=== PATIENT | female | born 2005 | race Caucasian/White ===

== ENCOUNTER 2024-06-13 17:20 | Inpatient (IN) | payer OTHER ==
[~2024-06-13] VITALS: Ht 162.6 cm; Wt 74.3 kg
[~2024-06-13 17:20] MED LIST: TRAMADOL HCL50 MG PO
--- OUTSIDE RECORDS SUMMARY | 2024-06-13 17:27 | XMS ---
PreManage Notification: MARCIA CARBALLO Security Physiatrist Events No recent Security Events currently on file CRITERIA MET - [facility] - 2 Visits in 30 Days CARE PROVIDERS -, [facility] Dentist: Naval Gunfire Spotter [facility] PHONE: [phone] - [place]- Dentist: Naval Gunfire Spotter [facility] PHONE: [phone] [facility]: [facility] PHONE: [phone] Ousmane has no Care Guidelines for this patient. E.D. VISIT COUNT (12 MO.) 2 SAIRA Evans [facility] Radha ([place]) TOTAL 3 NOTE: Visits indicate total known visits. ED/UCC VISIT TRACKING (12 MO.) 06/13/2024 17:21 SAIRA You [place] TYPE: Emergency COMPLAINT: - ABDOMINAL PAIN 05/28/2024 16:04 [facility] TYPE: Emergency DIAGNOSES: - Abrasion of unspecified external genital organs, female, initial encounter - Abrasion, left thigh, initial encounter - Bitten by dog, initial encounter - Bitten by dog, initial encounter - Animal Bite - dog bites 09/01/2023 14:14 SAIRA You [place] TYPE: Emergency COMPLAINT: - R FLANK/ABD PAIN, NAUSEA DIAGNOSES: - Personal history of other diseases of the digestive system - Right upper quadrant pain - Unspecified abdominal pain INPATIENT VISIT TRACKING (12 MO.) No inpatient visits to display in this time frame [email or web address]
[2024-06-13 18:06] LABS: BASOPHILS 0.4 % (0-2); EOSINOPHILS 0.8 % (0-6); HEMATOCRIT 40.9 % (35.0-50.0); HEMOGLOBIN 14.1 g/dL (12.0-18.0); LYMPHOCYTES 23.2 % (24-44); MCH 30.3 (27-36); MCHC 34.5 g/dl (30-36); MCV 87.8 fl (81-99); MONOCYTES 7.6 % (0-12); PLATELET COUNT 277 K/uL (140-440); RBC 4.66 M/ul (4.3-5.7); RDW 12.8 (10.5-15.0)
[2024-06-13 18:12] LABS: BILIRUBIN, URINE NEGATIVE (negative); BLOOD/HGB, URINE NEGATIVE (Negative); KETONE, URINE SMALL (Negative); LEUK ESTERASE, URINE NEGATIVE (negative); NITRITE, URINE NEGATIVE (negative); PH, URINE 5.5 (5-7)
[2024-06-13] MEDS ORDERED: ondansetron HCL 4 MG/2 ML VIAL IV ONE ×2 (18:15→18:45)
[2024-06-13 18:16] LABS: ALBUMIN 4.2 g/dL (3.4-5.0); ALBUMIN/GLOBULIN RATIO 1.02 (1.1-2.4); ALKALINE PHOSPHATASE 96 U/L (46-116); ALT (SGPT) 24 U/L (14-59); ANION GAP 15.4 (7-21); AST (SGOT) 10 U/L (15-37); BILIRUBIN, TOTAL 0.4 ng/dL (0.2-1.0); BUN/CREATININE RATIO 14.47 (6.0-28.6); CALCIUM 9.1 mg/dL (8.5-10.1); CARBON DIOXIDE 25 mmol/L (21-32); CHLORIDE 101 mmol/L (98-107); CREATININE, SERUM 0.76 mg/dL (0.55-1.02); GLOMERULAR FILTRATION RATE,EST 116 mL/min (>60); MAGNESIUM 1.8 mg/dL (1.8-2.4); POTASSIUM 3.4 mmol/L (3.5-5.1); PROTEIN, TOTAL 8.3 g/dL (6.4-8.2); UREA NITROGEN 11 mg/dL (7-18)
[2024-06-13] MEDS ORDERED: HYDROmorphone HCL 1 MG/ML SYR IV PRN ×2 (18:30→21:45)
[2024-06-13] MEDS ORDERED: LACTATED RINGER'S 1,000 ML IV ONE (20:00)
[2024-06-13] MEDS ORDERED: FAMOTIDINE 20 MG/ 2 ML VIAL IV ONE (20:00)
[2024-06-13] MEDS ORDERED: MELATONIN 3 MG TAB PO PRN (21:00)
[2024-06-13 21:37] LABS: AMYLASE 125 U/L (25-115); TRIGLYCERIDES 89 ng/dL (<150)
[2024-06-13] MEDS ORDERED: LACTATED RINGER'S 1,000 ML IV SCH (21:45)
[2024-06-13] MEDS ORDERED: ACETAMINOPHEN 325 MG TAB PO PRN (21:45)
[2024-06-13] MEDS ORDERED: ondansetron HCL 4 MG/2 ML VIAL IV PRN (21:45)
[2024-06-13] MEDS ORDERED: PROCHLORPERAZINE EDISYLATE 10 MG/2 ML VIAL IV PRN (21:45)
[2024-06-13 22:26] VITALS: BP 133/76
[2024-06-14] VITALS (11 sets, daily range): BP systolic 104–115; BP diastolic 55–69
[2024-06-14 05:56] LABS: ALBUMIN 3.7 g/dL (3.4-5.0); ALBUMIN/GLOBULIN RATIO 0.95 (1.1-2.4); ANION GAP 16.7 (7-21); BILIRUBIN, TOTAL 0.5 ng/dL (0.2-1.0); BUN/CREATININE RATIO 8.57 (6.0-28.6); CALCIUM 8.9 mg/dL (8.5-10.1); CREATININE, SERUM 0.7 mg/dL (0.55-1.02); MAGNESIUM 1.8 mg/dL (1.8-2.4); POTASSIUM 3.7 mmol/L (3.5-5.1); PROTEIN, TOTAL 7.6 g/dL (6.4-8.2)
[2024-06-14] MEDS ORDERED: PANTOPRAZOLE SODIUM 40 MG/10 ML VIAL IV SCH (09:00)
[2024-06-14] MEDS ORDERED: PHARMACY RENAL DOSE ADJUSTMENT 1 DOSE MISC PO SCH (12:00)
[2024-06-14] MEDS ORDERED: SUCRALFATE 1 GM TAB PO SCH (12:00)
[2024-06-14] MEDS ORDERED: DEXTROSE 5% - LACTATED RINGERS 1,000 ML IV SCH (17:00)
[2024-06-14] MEDS ORDERED: IBLOOD GLUCOSE TEST STRIP 1 EA TEST VI SCH (20:00)
[2024-06-15 04:38] VITALS: BP 122/65
[2024-06-15 05:47] LABS: ALBUMIN 3.5 g/dL (3.4-5.0); ALBUMIN/GLOBULIN RATIO 1.09 (1.1-2.4); ANION GAP 12.4 (7-21); BILIRUBIN, TOTAL 0.4 ng/dL (0.2-1.0); BUN/CREATININE RATIO 5.97 (6.0-28.6); CALCIUM 8.8 mg/dL (8.5-10.1); CREATININE, SERUM 0.67 mg/dL (0.55-1.02); MAGNESIUM 1.6 mg/dL (1.8-2.4); POTASSIUM 3.4 mmol/L (3.5-5.1); PROTEIN, TOTAL 6.7 g/dL (6.4-8.2)
[2024-06-15] MEDS ORDERED: POTASSIUM CHLORIDE 20 MEQ in DEXTROSE 5% 250 ML IV ONE (08:00)
[2024-06-15] MEDS ORDERED: HYDROCODONE/ACETA 5/325 TAB PO PRN (08:00)
[2024-06-15] MEDS ORDERED: MAGNESIUM SULFATE 2 GM/50 ML BAG IV ONE (08:00)
[2024-06-15 09:19] VITALS: BP 113/63
[2024-06-15] MEDS ORDERED: CAPSAICIN 0.025% CREAM TOP PRN (11:45)
[2024-06-15 13:51] VITALS: BP 121/93
[2024-06-15] MEDS ORDERED: IBLOOD GLUCOSE TEST STRIP 1 EA TEST VI SCH (17:00)
[2024-06-15 18:14] VITALS: BP 105/60; BP 96/80
[2024-06-15 21:15] VITALS: BP 111/77
[2024-06-15 21:16] VITALS: BP 111/77
[2024-06-16 06:20] VITALS: BP 110/62
[2024-06-16] MEDS ORDERED: PANTOPRAZOLE SODIUM 40 MG/10 ML VIAL IV SCH (09:00)
[2024-06-16 09:15] VITALS: BP 120/79
[2024-06-16] MEDS ORDERED: HYDROCODON-ACE1 EA10 PO (09:30)
[2024-06-16] MEDS ORDERED: OMEPRAZOLE20 MG PO (09:31)
[2024-06-16] MEDS ORDERED: ONDANSETRON ODT4 MG PO (09:31)
[2024-06-16 10:16] VITALS: BP 120/79
[2024-06-16 11:00] VITALS: BP 130/68
== END 2024-06-16 10:59 | disposition home or self-care (01) | DRG 440 ==
LOC: ED 17:20 → MS 21:43
PROVIDERS: Emergency Medicine; ADMIT Student in an Organized Health Care Education/Training Program; ATTEND Student in an Organized Health Care Education/Training Program
DX: K85.30 Drug induced acute pancreatitis without necrosis or infection (principal); T50.905A Adverse effect of unspecified drugs, medicaments and biological substances, initial encounter; G43.909 Migraine, unspecified, not intractable, without status migrainosus
CPT/HCPCS: 36415; 74177; 76705; 80053; 81003; 82150; 83690; 83735; 84478; 84703; 85025; 96375; 96376; 99285-25; A9270; J0780; J1171; J2405; J2470; J3475; J3480; J7060; J7121; Q9967

== ENCOUNTER 2024-09-05 08:13 | Emergency (ER) | payer OTHER ==
[~2024-09-05] VITALS: Ht 162.6 cm; Wt 74.3 kg
[~2024-09-05 08:13] MED LIST changes: +HYDROCODON-ACE1 EA10 PO; +OMEPRAZOLE20 MG PO; +ONDANSETRON ODT4 MG PO
[2024-09-05] MEDS ORDERED: TYLENOL325 MG PO (08:27)
[2024-09-05] MEDS ORDERED: ondansetron HCL 4 MG/2 ML VIAL IV ONE (08:30)
[2024-09-05] MEDS ORDERED: SODIUM CHLORIDE 0.9% 1,000 ML IV ONE (08:30)
[2024-09-05 08:49] LABS: BASOPHILS 0.5 % (0-2); EOSINOPHILS 1.4 % (0-6); HEMATOCRIT 39.3 % (35.0-50.0); HEMOGLOBIN 13.5 g/dL (12.0-18.0); LYMPHOCYTES 20.9 % (24-44); MCH 29.5 (27-36); MCHC 34.5 g/dl (30-36); MCV 85.6 fl (81-99); NEUTROPHILS 71.2 % (39-80); PLATELET COUNT 251 K/uL (140-440); RBC 4.59 M/ul (4.3-5.7)
[2024-09-05 09:04] LABS: ALBUMIN 3.8 g/dL (3.4-5.0); ALBUMIN/GLOBULIN RATIO 0.9 (1.1-2.4); ANION GAP 14.9 (7-21); BILIRUBIN, TOTAL 0.3 mg/dL (0.2-1.0); BUN/CREATININE RATIO 9.52 (6.0-28.6); CALCIUM 8.9 mg/dL (8.5-10.1); CREATININE, SERUM 0.63 mg/dL (0.55-1.02); POTASSIUM 3.9 mmol/L (3.5-5.1)
[2024-09-05] MEDS ORDERED: ONDANSETRON ODT8 MG PO (09:36)
[2024-09-05] MEDS ORDERED: HYDROCODON-ACE1 EA10 PO (09:36)
[2024-09-05] MEDS ORDERED: HYDROmorphone HCL 1 MG/ML SYR IV PRN (09:45)
[2024-09-05] MEDS ORDERED: KETOROLAC TROMETHAMINE 15 MG/ML VIAL IV ONE (09:45)
[2024-09-05 10:34] VITALS: BP 102/56
== END 2024-09-05 10:34 | disposition home or self-care (01) ==
LOC: ED 08:13
PROVIDERS: Emergency Medicine
DX: K85.90 Acute pancreatitis without necrosis or infection, unspecified (principal); Z88.8 Allergy status to other drugs, medicaments and biological substances
CPT/HCPCS: 36415; 80053; 83690; 84703; 85025; 96361; 96374; 96375; 99284-25; J1171; J1885; J2405; J7030

== ENCOUNTER 2024-11-02 08:10 | Emergency (ER) | payer OTHER ==
[~2024-11-02] VITALS: Ht 162.6 cm; Wt 71.9 kg
[~2024-11-02 08:10] MED LIST changes: +ONDANSETRON ODT8 MG PO; +TYLENOL325 MG PO
[2024-11-02] MEDS ORDERED: ondansetron HCL 4 MG/2 ML VIAL IV ONE (08:15)
[2024-11-02] MEDS ORDERED: SODIUM CHLORIDE 0.9% 1,000 ML IV ONE (08:15)
[2024-11-02 08:43] LABS: BASOPHILS 0.4 % (0.1-1.2); HEMATOCRIT 36.8 % (34.1-44.9); HEMOGLOBIN 12.1 g/dL (11.2-15.7); LYMPHOCYTES 14.8 % (19.3-51.7); MCH 29.4 PG (25.6-32.2); MCHC 32.9 g/dL (32.2-35.5); MCV 89.5 fL (79.4-94.8); MONOCYTES 6.8 % (4.7-12.5); NEUTROPHILS 76.7 % (34.0-71.1); PLATELET COUNT 267 K/uL (182-369); RBC 4.11 M/uL (3.93-5.22)
[2024-11-02] MEDS ORDERED: HYDROmorphone HCL 1 MG/ML SYR IV PRN (08:45)
[2024-11-02 09:00] LABS: ALBUMIN 3.7 g/dL (3.4-5.0); ALBUMIN/GLOBULIN RATIO 0.93 (1.1-2.4); ANION GAP 15.7 (7-21); BILIRUBIN, TOTAL 0.2 mg/dL (0.2-1.0); BUN/CREATININE RATIO 15.27 (6.0-28.6); CALCIUM 8.6 mg/dL (8.5-10.1); CREATININE, SERUM 0.72 mg/dL (0.55-1.02); MAGNESIUM 2.1 mg/dL (1.8-2.4); POTASSIUM 3.7 mmol/L (3.5-5.1); PROTEIN, TOTAL 7.7 g/dL (6.4-8.2)
[2024-11-02] MEDS ORDERED: PROTONIX40 MG PO (10:15)
[2024-11-02] MEDS ORDERED: ONDANSETRON ODT4 MG PO (10:15)
[2024-11-02] MEDS ORDERED: DICYCLOMINE HCL20 MG PO (10:15)
[2024-11-02 10:40] VITALS: BP 102/60
== END 2024-11-02 10:41 | disposition home or self-care (01) ==
LOC: ED 08:10
PROVIDERS: Emergency Medicine
DX: K21.9 Gastro-esophageal reflux disease without esophagitis (principal); K85.90 Acute pancreatitis without necrosis or infection, unspecified; K51.90 Ulcerative colitis, unspecified, without complications; Z88.8 Allergy status to other drugs, medicaments and biological substances; G43.909 Migraine, unspecified, not intractable, without status migrainosus
CPT/HCPCS: 36415; 80053; 83690; 83735; 84703; 85025; 96374; 96375; 99284-25; J1171; J2405; J7030

== ENCOUNTER 2024-11-09 08:11 | Emergency (ER) | payer OTHER ==
[~2024-11-09] VITALS: Ht 162.6 cm; Wt 70.6 kg
[~2024-11-09 08:11] MED LIST changes: +DICYCLOMINE HCL20 MG PO; +PROTONIX40 MG PO
--- OUTSIDE RECORDS SUMMARY | 2024-11-09 08:15 | XMS ---
PreManage Notification: MARCIA CARBALLO Security Supervisor Agricultural Education Events No recent Security Events currently on file CRITERIA MET - 6 ED Visits in 6 Months - [facility] - 2 Visits in 30 Days CARE PROVIDERS [facility]Center: [facility] Current FAMILY PHONE: [phone] Ousmane has no Care Guidelines for this patient. Hank VISIT COUNT (12 MO.) 5 [facility] 1 [facility] Nupur Garcia (Ajith Canseco) TOTAL 6 NOTE: Visits indicate total known visits. ED/UCC VISIT TRACKING (12 MO.) 11/09/2024 08:12 SAIRA You [place] TYPE: Emergency COMPLAINT: - ABDOMINAL PAIN 11/08/2024 13:30 SAIRA You [place] TYPE: Emergency COMPLAINT: - ABDOMINAL PAIN 11/02/2024 08:10 SAIRA You [place] TYPE: Emergency COMPLAINT: - ABDOMINAL PAIN DIAGNOSES: - Acute pancreatitis without necrosis or infection, unspecified - Allergy status to other drugs, medicaments and biological substances - Gastro-esophageal reflux disease without esophagitis - Migraine, unspecified, not intractable, without status migrainosus - Ulcerative colitis, unspecified, without complications - Upper abdominal pain, unspecified 09/05/2024 08:13 SAIRA You [place] TYPE: Emergency COMPLAINT: - ABDOMINAL PAIN DIAGNOSES: - Acute pancreatitis without necrosis or infection, unspecified - Allergy status to other drugs, medicaments and biological substances - Right upper quadrant pain 06/13/2024 17:21 SAIRA You [place] TYPE: Emergency COMPLAINT: - ABDOMINAL PAIN 05/28/2024 16:04 [facility] Radha LOPEZ (Ajith Canseco) TYPE: Emergency DIAGNOSES: - Abrasion of unspecified external genital organs, female, initial encounter - Abrasion, left thigh, initial encounter - Bitten by dog, initial encounter - Bitten by dog, initial encounter - Animal Bite - dog bites INPATIENT VISIT TRACKING (12 MO.) 06/13/2024 21:[address] [facility] [place] TYPE: Medical Surgical COMPLAINT: - ACUTE PANCREATITIS DIAGNOSES: - Acute pancreatitis without necrosis or infection, unspecified - Adverse effect of unspecified drugs, medicaments and biological substances, initial encounter - Adverse effect of unspecified drugs, medicaments and biological substances, initial encounter - Drug induced acute pancreatitis without necrosis or infection - Drug induced acute pancreatitis without necrosis or infection - Migraine, unspecified, not intractable, without status migrainosus - Migraine, unspecified, not intractable, without status migrainosus [email or web address]
[2024-11-09 08:36] LABS: BILIRUBIN, URINE NEGATIVE (negative); BLOOD/HGB, URINE TRACE-I (Negative); KETONE, URINE NEGATIVE (Negative); LEUK ESTERASE, URINE NEGATIVE (negative); NITRITE, URINE NEGATIVE (negative)
[2024-11-09 08:36] LABS: BASOPHILS 0.5 % (0.1-1.2); EOSINOPHILS 2.3 % (0.7-5.8); HEMATOCRIT 38.5 % (34.1-44.9); HEMOGLOBIN 12.5 g/dL (11.2-15.7); LYMPHOCYTES 32.7 % (19.3-51.7); MCH 29.6 PG (25.6-32.2); MCHC 32.5 g/dL (32.2-35.5); MONOCYTES 7.3 % (4.7-12.5); NEUTROPHILS 56.9 % (34.0-71.1); PLATELET COUNT 288 K/uL (182-369); RBC 4.23 M/uL (3.93-5.22)
[2024-11-09] MEDS ORDERED: MORPHINE SULFATE 4 MG/ML VIAL IV ONE (08:45)
[2024-11-09] MEDS ORDERED: ondansetron HCL 4 MG/2 ML VIAL IV ONE (08:45)
[2024-11-09] MEDS ORDERED: SODIUM CHLORIDE 0.9% 1,000 ML IV PRN ×2 (08:45→11:45)
[2024-11-09 08:54] LABS: BACTERIA, URINE NONE SEEN /hpf (negative); CASTS, URINE NONE SEEN \\lpf; COLLECTION TYPE, URINE CLEAN CATCH; CRYSTALS, URINE NONE SEEN (0-1+); EPITHELIAL CELLS, URINE OCCASIONAL /lpf (0-1+); REFLEX CULTURE, URINE No (No); WHITE BLOOD CELLS, URINE 0-1 /HPF (0-5)
[2024-11-09 08:58] LABS: ALBUMIN 3.8 g/dL (3.4-5.0); ALBUMIN/GLOBULIN RATIO 0.95 (1.1-2.4); ANION GAP 14.6 (7-21); BILIRUBIN, TOTAL 0.3 mg/dL (0.2-1.0); BUN/CREATININE RATIO 15.49 (6.0-28.6); CALCIUM 8.9 mg/dL (8.5-10.1); CREATININE, SERUM 0.71 mg/dL (0.55-1.02); POTASSIUM 3.6 mmol/L (3.5-5.1); PROTEIN, TOTAL 7.8 g/dL (6.4-8.2)
[2024-11-09] MEDS ORDERED: IBUPROFEN 600 MG TAB PO ONE (11:45)
[2024-11-09] MEDS ORDERED: HYDROCODONE/ACETA 5/325 TAB PO ONE (11:45)
[2024-11-09 14:01] VITALS: BP 105/77
== END 2024-11-09 14:02 | disposition home or self-care (01) ==
LOC: ED 08:11
PROVIDERS: Emergency Medicine
DX: K85.90 Acute pancreatitis without necrosis or infection, unspecified (principal); Z88.8 Allergy status to other drugs, medicaments and biological substances
CPT/HCPCS: 36415; 76705; 80053; 81001; 83690; 84703; 85025; 96361; 96374; 96375; 99284-25; A9270; J2270; J2405; J7030

== ENCOUNTER 2025-02-16 08:11 | Emergency (ER) | payer OTHER ==
[~2025-02-16] VITALS: Ht 162.6 cm; Wt 65.5 kg
--- OUTSIDE RECORDS SUMMARY | 2025-02-16 08:28 | XMS ---
PreManage Notification: MARCIA CARBALLO Security Industrial Engineering Technician Events No recent Security Events currently on file CRITERIA MET - 6 ED Visits in 6 Months - Group Notification CARE PROVIDERS -, [facility] Dentist: General Operations Agent Formerly Named [facility] PHONE: [phone] [facility] PHONE: [phone] Ousmane has no Care Guidelines for this patient. ELynneDLynne VISIT COUNT (12 MO.) 6 [facility] [address] (Ajith Canseco) TOTAL 8 NOTE: Visits indicate total known visits. ED/UCC VISIT TRACKING (12 MO.) 02/16/2025 08:11 [facility]: [facility] COMPLAINT: - ABDOMINAL PAIN 11/11/2024 15:50 [facility] Radha LOPEZ (Ajith Canseco) TYPE: Emergency DIAGNOSES: - Acute pancreatitis without necrosis or infection, unspecified - abd pain - Abdominal Pain 11/09/2024 08:12 [facility] [place] H. Lebec [place] TYPE: Emergency COMPLAINT: - ABDOMINAL PAIN DIAGNOSES: - Acute pancreatitis without necrosis or infection, unspecified - Allergy status to other drugs, medicaments and biological substances - Unspecified abdominal pain 11/08/2024 13:30 [facility] [place] HLynne Lebec [place] TYPE: Emergency COMPLAINT: - ABDOMINAL PAIN 11/02/2024 08:10 [facility] [place] HLynne Lebec [place] TYPE: Emergency COMPLAINT: - ABDOMINAL PAIN DIAGNOSES: - Acute pancreatitis without necrosis or infection, unspecified - Allergy status to other drugs, medicaments and biological substances - Gastro-esophageal reflux disease without esophagitis - Migraine, unspecified, not intractable, without status migrainosus - Ulcerative colitis, unspecified, without complications - Upper abdominal pain, unspecified 09/05/2024 08:13 [facility] [place] H. [place] TYPE: Emergency COMPLAINT: - ABDOMINAL PAIN DIAGNOSES: - Acute pancreatitis without necrosis or infection, unspecified - Allergy status to other drugs, medicaments and biological substances - Right upper quadrant pain 06/13/2024 17:[address] [facility] [address] [facility] [place] TYPE: Emergency COMPLAINT: - ABDOMINAL PAIN 05/28/2024 16:04 [facility]seco[facility] TYPE: Emergency DIAGNOSES: - Abrasion of unspecified external genital organs, female, initial encounter - Abrasion, left thigh, initial encounter - Bitten by dog, initial encounter - Bitten by dog, initial encounter - Animal Bite - dog bites INPATIENT VISIT TRACKING (12 MO.) 11/11/2024 15:50 [facility] (Ajith Canseco) TYPE: Medical Surgical DIAGNOSES: - Acute pancreatitis without necrosis or infection, unspecified - Idiopathic acute pancreatitis without necrosis or infection 06/13/2024 21:[address] [facility] [place] [...] Migraine, unspecified, not intractable, without status migrainosus [email or web address]
[2025-02-16] MEDS ORDERED: SODIUM CHLORIDE 0.9% 1,000 ML IV ONE (08:30)
[2025-02-16] MEDS ORDERED: MORPHINE SULFATE 4 MG/ML VIAL IV ONE (09:00)
[2025-02-16 09:04] LABS: BASOPHILS 0.6 % (0.1-1.2); EOSINOPHILS 1.0 % (0.7-5.8); LYMPHOCYTES 24.2 % (19.3-51.7); MCH 29.1 PG (25.6-32.2); MCHC 32.7 g/dL (32.2-35.5); MCV 88.9 fL (79.4-94.8); MONOCYTES 5.7 % (4.7-12.5); NEUTROPHILS 68.3 % (34.0-71.1); RBC 4.40 M/uL (3.93-5.22)
[2025-02-16 09:22] LABS: ALT (SGPT) 14.0 U/L (14-59); AST (SGOT) 9.0 U/L (15-37); GLOMERULAR FILTRATION RATE,EST 138.0 mL/min (>60); PROTEIN, TOTAL 8.2 g/dL (6.4-8.2); UREA NITROGEN 7.0 mg/dL (7-18)
[2025-02-16] MEDS ORDERED: CARAFATE1 GM PO (10:01)
[2025-02-16] MEDS ORDERED: OMEPRAZOLE20 MG PO (10:01)
[2025-02-16 10:15] LABS: BLOOD/HGB, URINE TRACE-I (Negative); KETONE, URINE NEGATIVE (Negative); LEUK ESTERASE, URINE NEGATIVE (negative); NITRITE, URINE NEGATIVE (negative)
[2025-02-16 10:30] LABS: BACTERIA, URINE NONE SEEN /hpf (negative); CASTS, URINE NONE SEEN \\lpf; CRYSTALS, URINE NONE SEEN (0-1+); EPITHELIAL CELLS, URINE OCCASIONAL /lpf (0-1+); REFLEX CULTURE, URINE No (No)
[2025-02-16] MEDS ORDERED: KETOROLAC TROMETHAMINE 15 MG/ML VIAL IV ONE (10:30)
[2025-02-16 10:53] VITALS: BP 94/57
== END 2025-02-16 10:57 | disposition home or self-care (01) ==
LOC: ED 08:11
PROVIDERS: Emergency Medicine
DX: K86.1 Other chronic pancreatitis (principal); K86.2 Cyst of pancreas; Z88.8 Allergy status to other drugs, medicaments and biological substances
CPT/HCPCS: 36415; 74177; 80053; 81001; 83690; 84478; 84703; 85025; 96374; 96375; 99284-25; J1885; J2270; J2405; J7030; Q9967

== ENCOUNTER 2025-02-21 08:11 | Emergency (ER) | payer OTHER ==
[~2025-02-21] VITALS: Ht 162.6 cm; Wt 66.0 kg
[~2025-02-21 08:11] MED LIST changes: +CARAFATE1 GM PO
--- OUTSIDE RECORDS SUMMARY | 2025-02-21 08:19 | XMS ---
PreManage Notification: MARCIA CARBALLO Security Selenium Plant Operator Events No recent Security Events currently on file CRITERIA MET - 6 ED Visits in 6 Months - Group Notification - [facility] - 2 Visits in 30 Days CARE PROVIDERS -, [facility] Dentist: Adjunct Professor Of Voice [facility] PHONE: [phone] [facility]: [facility] PHONE: [phone] Ousmane has no Care Guidelines for this patient. E.D. VISIT COUNT (12 MO.) [address] [place] [address] Nupur Canseco) TOTAL 9 NOTE: Visits indicate total known visits. ED/UCC VISIT TRACKING (12 MO.) 02/21/2025 08:11 SAIRA You [place] TYPE: Emergency COMPLAINT: - VOMITING 02/16/2025 08:11 SAIRA You [place] TYPE: Emergency COMPLAINT: - ABDOMINAL PAIN DIAGNOSES: - Allergy status to other drugs, medicaments and biological substances - Cyst of pancreas - Epigastric pain - Other chronic pancreatitis 11/11/2024 15:[facility]jith Canseco[facility] TYPE: Emergency DIAGNOSES: - Acute pancreatitis without necrosis or infection, unspecified - abd pain - Abdominal Pain 11/09/2024 08:12 SAIRA You [place] TYPE: Emergency COMPLAINT: - ABDOMINAL PAIN DIAGNOSES: - Acute pancreatitis without necrosis or infection, unspecified - Allergy status to other drugs, medicaments and biological substances - Unspecified abdominal pain 11/08/2024 13:30 SAIRA You [place] TYPE: Emergency [...] Emergency COMPLAINT: - ABDOMINAL PAIN 05/28/2024 16:04 [facility] Nupur LOPEZ (Ajith Canseco) TYPE: Emergency DIAGNOSES: - Abrasion of unspecified external genital organs, female, initial encounter - Abrasion, left thigh, initial encounter - Bitten by dog, initial encounter - Bitten by dog, initial encounter - Animal Bite - dog bites INPATIENT VISIT TRACKING (12 MO.) 11/11/2024 15:50 [facility]Ajith Canseco[facility] TYPE: Medical Surgical DIAGNOSES: - Acute pancreatitis without necrosis or infection, unspecified - Idiopathic acute pancreatitis without necrosis or infection 06/13/2024 21:43 [facility] [place] [facility]: [facility] COMPLAINT: - [...] Migraine, unspecified, not intractable, without status migrainosus [email or web address]
[2025-02-21] MEDS ORDERED: SODIUM CHLORIDE 0.9% 2,000 ML IV ONE (08:30)
[2025-02-21 08:39] LABS: BASOPHILS 0.6 % (0.1-1.2); EOSINOPHILS 0.8 % (0.7-5.8); LYMPHOCYTES 30.0 % (19.3-51.7); MCH 29.7 PG (25.6-32.2); MCHC 33.1 g/dL (32.2-35.5); MCV 89.7 fL (79.4-94.8); MONOCYTES 6.3 % (4.7-12.5); NEUTROPHILS 62.0 % (34.0-71.1); RBC 4.45 M/uL (3.93-5.22)
[2025-02-21 08:55] LABS: ALT (SGPT) 14.0 U/L (14-59); AST (SGOT) 9.0 U/L (15-37); GLOMERULAR FILTRATION RATE,EST 132.0 mL/min (>60); PROTEIN, TOTAL 8.2 g/dL (6.4-8.2); UREA NITROGEN 7.0 mg/dL (7-18)
[2025-02-21] MEDS ORDERED: MORPHINE SULFATE 4 MG/ML VIAL IV ONE (09:30)
[2025-02-21 09:45] LABS: BLOOD/HGB, URINE TRACE-I (Negative); KETONE, URINE >=80 (Negative); LEUK ESTERASE, URINE NEGATIVE (negative); NITRITE, URINE NEGATIVE (negative)
[2025-02-21 09:51] LABS: BACTERIA, URINE RARE /hpf (negative); CASTS, URINE NONE SEEN \\lpf; CRYSTALS, URINE NONE SEEN (0-1+); EPITHELIAL CELLS, URINE SQUAMOUS 3+ /lpf (0-1+); REFLEX CULTURE, URINE No (No)
[2025-02-21] MEDS ORDERED: REGLAN10 MG PO (10:09)
[2025-02-21 10:25] VITALS: BP 120/87
== END 2025-02-21 10:25 | disposition home or self-care (01) ==
LOC: ED 08:11
PROVIDERS: Emergency Medicine
DX: K86.1 Other chronic pancreatitis (principal); Z88.8 Allergy status to other drugs, medicaments and biological substances
CPT/HCPCS: 36415; 80053; 81001; 83690; 84703; 85025; 96374; 96375; 99284-25; J2270; J2405; J7030

== ENCOUNTER 2025-03-02 08:11 | Emergency (ER) | payer OTHER ==
[~2025-03-02] VITALS: Ht 162.6 cm; Wt 66.0 kg
[~2025-03-02 08:11] MED LIST changes: +REGLAN10 MG PO
--- OUTSIDE RECORDS SUMMARY | 2025-03-02 08:19 | XMS ---
PreManage Notification: MARCIA CARBALLO Security Associate Relations Specialist Events No recent Security Events currently on file CRITERIA MET - 6 ED Visits in 6 Months - Group Notification - [facility] - 2 Visits in 30 Days CARE PROVIDERS -, [facility] Dentist: Geophysical Engineer [facility] PHONE: [phone] [facility]/Center: [facility] PHONE: [phone] Ousmane has no Care Guidelines for this patient. E.D. VISIT COUNT (12 MO.) [address] [place] [address] Nupur Canseco) TOTAL 10 NOTE: Visits indicate total known visits. ED/UCC VISIT TRACKING (12 MO.) 03/02/2025 08:12 SAIRA You [place] TYPE: Emergency COMPLAINT: - ABDOMINAL PAIN 02/21/2025 08:11 SAIRA You [place] TYPE: Emergency COMPLAINT: - VOMITING DIAGNOSES: - Allergy status to other drugs, medicaments and biological substances - Epigastric pain - Other chronic pancreatitis [facility]/16/2025 08:[facility] COMPLAINT: - ABDOMINAL PAIN DIAGNOSES: - Allergy status to other drugs, medicaments and biological substances - Cyst of pancreas - Epigastric pain - Other chronic pancreatitis 11/11/2024 15:50 [facility] Radha LOPEZ (Ajith Cnaseco) TYPE: Emergency DIAGNOSES: - Acute pancreatitis without necrosis or infection, unspecified - abd pain - Abdominal Pain 11/09/2024 08:12 [facility] [place] [facility]: Emergency COMPLAINT: - ABDOMINAL PAIN DIAGNOSES: - Acute pancreatitis without necrosis or infection, unspecified - Allergy status to other drugs, medicaments and biological substances - Unspecified abdominal pain 11/08/2024 13:[address] [facility] [address] [facility] RoyLynne Man [place] TYPE: Emergency COMPLAINT: - ABDOMINAL PAIN 11/02/2024 08:10 SAIRA [place] HLynne Man [place] TYPE: Emergency COMPLAINT: - ABDOMINAL PAIN DIAGNOSES: - Acute pancreatitis without necrosis or infection, unspecified - Allergy status to other drugs, medicaments and biological substances - Gastro-esophageal reflux disease without esophagitis - Migraine, unspecified, not intractable, without status migrainosus - Ulcerative colitis, unspecified, without complications - Upper abdominal pain, unspecified 09/05/2024 08:13 [facility] [place] HLynne Man [place] TYPE: Emergency COMPLAINT: - ABDOMINAL PAIN DIAGNOSES: - Acute pancreatitis without necrosis or infection, unspecified - Allergy status to other drugs, medicaments and biological substances - Right upper quadrant pain 06/13/2024 17:21 [facility] [place] HLynne Man [place] TYPE: Emergency COMPLAINT: - ABDOMINAL PAIN 05/28/2024 16:04 [facility] Nupur LOPEZ (Ajith Canseco) TYPE: Emergency DIAGNOSES: - Abrasion of unspecified external genital organs, female, initial encounter - Abrasion, left thigh, initial encounter - Bitten by dog, initial encounter - Bitten by dog, initial encounter - Animal Bite - dog bites INPATIENT VISIT TRACKING (12 MO.) 11/11/2024 15:50 [facility] TYPE: Medical Surgical DIAGNOSES: - Acute pancreatitis without necrosis or infection, unspecified - Idiopathic acute pancreatitis without necrosis or infection 06/13/2024 21:[address] [facility] [address] [facility] [place] TYPE: Medical Surgical [...] Migraine, unspecified, not intractable, without status migrainosus [id number]
[2025-03-02 08:50] LABS: BASOPHILS 0.4 % (0.1-1.2); EOSINOPHILS 1.0 % (0.7-5.8); LYMPHOCYTES 21.6 % (19.3-51.7); MCH 29.8 PG (25.6-32.2); MCHC 33.2 g/dL (32.2-35.5); MCV 89.7 fL (79.4-94.8); MONOCYTES 8.0 % (4.7-12.5); NEUTROPHILS 68.7 % (34.0-71.1); RBC 3.89 M/uL (3.93-5.22)
[2025-03-02 09:07] LABS: ALT (SGPT) 7.0 U/L (14-59); AST (SGOT) 6.0 U/L (15-37); GLOMERULAR FILTRATION RATE,EST 141.0 mL/min (>60); PROTEIN, TOTAL 7.9 g/dL (6.4-8.2); UREA NITROGEN 8.0 mg/dL (7-18)
[2025-03-02 09:10] LABS: BLOOD/HGB, URINE NEGATIVE (Negative); KETONE, URINE NEGATIVE (Negative); LEUK ESTERASE, URINE NEGATIVE (negative); NITRITE, URINE NEGATIVE (negative)
[2025-03-02] MEDS ORDERED: OXYCODONE/APAP 5/325 TAB PO ONE (10:30)
[2025-03-02] MEDS ORDERED: HYOSCYAMINE0.125 M2 PO (10:34)
[2025-03-02] MEDS ORDERED: BUDESONIDE ER9 MG PO (10:34)
[2025-03-02] MEDS ORDERED: ONDANSETRON ODT4 MG PO (10:34)
[2025-03-02] MEDS ORDERED: HYDROCODON-ACE1 EA10 PO (10:34)
[2025-03-02 10:55] VITALS: BP 116/69
== END 2025-03-02 10:50 | disposition home or self-care (01) ==
LOC: ED 08:11
PROVIDERS: Emergency Medicine
DX: K85.90 Acute pancreatitis without necrosis or infection, unspecified (principal); Z88.8 Allergy status to other drugs, medicaments and biological substances; Z79.899 Other long term (current) drug therapy
CPT/HCPCS: 36415; 80053; 81003; 83690; 83735; 84703; 85025; 96374; 99284-25; J2405